=== PATIENT | female | born 1945 | race Caucasian/White ===

== ENCOUNTER 2023-09-20 08:23 | Outpatient (REF) | payer MEDICARE, SELFPAY ==
--- NOTE | ~2023-09-20 | US_ITS ---
EXAMINATION: US NONINVASIVE ASSESSMENT OF THE RIGHT LOWER EXTREMITY WITH ARTERIAL DUPLEX AND ANKLE BRACHIAL INDICES (ABIS) CLINICAL INFORMATION: Atherosclerosis COMPARISON: None available. TECHNIQUE: Duplex Doppler techniques with waveform analysis and measurement of velocities in the common femoral, profunda femoris, superficial femoral, popliteal and tibial arteries were performed. In addition, ankle pulse volume recordings, ankle pressure measurements and ankle brachial indices were obtained of the lower extremity arterial system. The study was performed only at rest. FINDINGS: NONINVASIVE ASSESSMENT OF THE ARTERIES OF BILATERAL LOWER EXTREMITIES WITH ABIs: RIGHT LEG: Ankle-brachial index: 0.83 Ankle PVR: Abnormal, loss of dicrotic notch Right LEG: Ankle-brachial index: 0.3 Left ankle PVR: Abnormal, minimal to no waveform phasicity MARJ Reference: 0.9 - 1.4 = normal - no significant arterial disease 0.7 - 0.89 = mild peripheral arterial disease 0.51 - 0.69 = moderate peripheral arterial disease ? 0.50 = severe peripheral arterial disease RIGHT LOWER EXTREMITY DUPLEX ULTRASOUND: There is a focal plaque within the right common femoral artery. Proximal to the plaque peak systolic velocity is 143.6 cm/s. At the level of the plaque peak systolic velocity is 274.5 cm/s. Diastolic flow reversal is absent. Profunda femoris artery: 195.2 cm/s. Diastolic flow reversal: Absent Superficial femoral artery (proximal): 12.9 - 54.3 cm/s. Diastolic flow reversal: Absent Difficult to identify Doppler signal within the midportion of the superficial femoral artery, may be suggestive of extensive disease. Where the Doppler signal is identified, peak systolic velocity 67.7 cm/s. There is no diastolic flow reversal. Superficial femoral artery (distal): 41.1 cm/s. Diastolic flow reversal: Absent Popliteal artery: 55.3 cm/s Diastolic flow reversal: Absent Posterior tibial artery: 7.6 cm/s Diastolic flow reversal: Absent Dorsalis pedis: 13.9 cm/s Diastolic flow reversal: Absent Anterior tibial artery: 68.1 cm/s Diastolic flow reversal patent US/US arterial duplex LE RT IMPRESSION: The MARJ on the right is 0.3 and there is minimal to no waveform on PVR. There is a large focal plaque within the right common femoral artery which results in at least a moderate stenosis at this level. Beyond the level of the common femoral there are monophasic waveforms throughout the right lower extremity and it is difficult to identify Doppler signal within much of the superficial femoral artery suggesting additional significant SFA disease.
== END 2023-09-20 08:24 | disposition home or self-care (01) ==
LOC: HO.US 08:23
PROVIDERS: PCP Physician Assistant; Visit Provider Surgery
DX: I70.291 Other atherosclerosis of native arteries of extremities, right leg (principal)
CPT/HCPCS: 93923; 93926

== ENCOUNTER 2024-07-25 11:24 | Outpatient (AMB) | payer MEDICARE, SELFPAY ==
--- NOTE | 2024-07-25 11:37 | MHC.OFFVIS ---
Vital Signs 07/25/24 11:46 Height 5 ft 5 in BMI Reason not done Palliative Care Patient BP 165/74 H Blood Pressure Location Lt brachial Position Sitting Pulse 83 Intake Visit Reasons: Rt leg ulcer Intake Note: Patient is seen in office for evaluation and treatment of a right leg ulcer. Pt c/o: original wound was while transferring from chair to bed about a year ago, hasn't healed since, had cellulitis in the past, was on antbx, is been seen by wound clinic, and was seen by vascular in [facility], had imaging done, has blood flow issues, has been using skin subs and mesh and are requesting skin graft [employer] Supervisor Required: No Accompanied by: Family/Other Allergies Sulfa (Sulfonamide Antibiotics) Allergy (Mild, Verified 07/25/24 11:41) Unknown Medication List - Last Reconciled 07/25/24 by Jovan Shaikh MD apixaban (Eliquis) 5 mg PO BID atorvastatin 40 mg PO DAILY citalopram mg PO diltiazem HCl CD 180 mg PO DAILY gabapentin 400 mg PO TID omeprazole 20 mg PO DAILY tocilizumab (Actemra) mg subcut HPI Comments Details: 79-year-old female patient with a history of CVA and vasculitis with dense right hemiparesis and dependent edema being evaluated for nonhealing right anterior moody ulcer for the last year. She has a known SFA stenosis and was evaluated in [place] however no treatment was recommended. She presents today to discuss possible skin graft to this nonhealing wound. [facility] [place]. A skin substitute is being used on the open wound. [facility] Medical History (Updated 07/25/24 @ 12:56 by Jovan Shaikh MD) Chronic venous hypertension with ulcer Peripheral vascular disease Venous stasis Vasculitis Right hemiparesis CVA (cerebral vascular accident) Surgical History (Updated 07/25/24 @ 11:42 by MINAL Lam) Hx of prior ablation treatment Social History (Updated 07/25/24 @ 11:43 by MINAL Lam) Alcohol intake: current Alcohol intake frequency: holidays/special occasions only Patient Tobacco Use Status: Never used Tobacco Review of Systems Const Unobtainable due to mental condition Physical Exam Vital Signs: Last Vital Signs Pulse 83 07/25/24 11:46 BP 165/74 H 07/25/24 11:46 Const General: alert and awake Nutritional Appearance: well nourished Orientation/consciousness: patient oriented x3 Limitations: wheelchair (Right hemiparesis) HEENT Head: Yes normocephalic and Yes atraumatic Ears: hearing grossly normal bilaterally Resp Effort & Inspection: normal respiratory effort GI Inspection: Yes normal to inspection Skin Other: Ulceration as noted in extremity below Neuro General: patient oriented x3 Extrem Other: Right lower extremity with pitting edema 1+. A 1.5 x 2 cm ulceration with applied skin substitute being held by Steri-Strips is noted in the mid moody level as noted below. No erythema is noted. Toes with brisk capillary refill. Upper/lower leg/hip images: 1. 1.5 x 2 cm ulceration with skin substitute applied with Steri-Strips. 1+ edema in the lower extremity Assessment & Plan Assessment & Plan (1) Chronic venous hypertension with ulcer: Code(s): I87.319 - Chronic venous hypertension (idiopathic) with ulcer of unspecified lower extremity; L97.909 - Non-pressure chronic ulcer of unspecified part of unspecified lower leg with unspecified severity Category: Medical Plan 79-year-old female patient presenting with a nonhealing ulcer of the right moody of a proximally 1 years duration. The ulcer is improving however the patient is inquiring regarding applying a skin graft. I reviewed the procedure risks and benefits associated with the skin graft including nonhealing of the skin graft. After discussion of the procedure, risks and alternatives, she consents to the split-thickness skin graft from right thigh to right moody, to be scheduled as a short-stay surgery. Coding Level of Care Code New Pt Level 4 (17205) Diagnoses Chronic venous hypertension with ulcer I87.319; L97.909
[2024-07-25 11:46] VITALS: BP 165/74; PULSE 83
== END 2024-07-25 12:20 | disposition home or self-care (01) ==
PROVIDERS: PCP Physician Assistant; Referring Provider Physician Assistant; Visit Provider Surgery
DX: I87.319 Chronic venous hypertension (idiopathic) with ulcer of unspecified lower extremity (principal); L97.909 Non-pressure chronic ulcer of unspecified part of unspecified lower leg with unspecified severity
CPT/HCPCS: 99204

== ENCOUNTER → 2024-07-25 11:24 | Outpatient (BNVA) | payer MEDICARE, SELFPAY | PROVIDERS: PCP Physician Assistant; Referring Provider Physician Assistant; Visit Provider Surgery | DX: I87.311 Chronic venous hypertension (idiopathic) with ulcer of right lower extremity (principal); L97.919 Non-pressure chronic ulcer of unspecified part of right lower leg with unspecified severity; I69.354 Hemiplegia and hemiparesis following cerebral infarction affecting left non-dominant side | CPT/HCPCS: 99202 ==

== ENCOUNTER → 2024-09-25 11:40 | Outpatient (RCR) | payer MEDICARE, SELFPAY | END | disposition home or self-care (01) | LOC: HO.WCC 07-23 13:56 | PROVIDERS: PCP Physician Assistant; Referring Provider Physician Assistant; Visit Provider Physician Assistant | DX: I87.311 Chronic venous hypertension (idiopathic) with ulcer of right lower extremity (principal); L97.812 Non-pressure chronic ulcer of other part of right lower leg with fat layer exposed; I70.238 Atherosclerosis of native arteries of right leg with ulceration of other part of lower leg; L95.9 Vasculitis limited to the skin, unspecified; I69.351 Hemiplegia and hemiparesis following cerebral infarction affecting right dominant side; Z79.01 Long term (current) use of anticoagulants; Z79.82 Long term (current) use of aspirin; Z79.899 Other long term (current) drug therapy | CPT/HCPCS: 11042; 11043; 15271; 87070; 87077; 87186; 87205; 97597; 99212; 99213; Q4186; Q4187 ==

== ENCOUNTER 2025-06-25 14:46 | Outpatient (RCR) | payer MEDICARE, SELFPAY | END 2025-09-07 16:32 | disposition home or self-care (01) | LOC: HO.WCC 14:46 | PROVIDERS: PCP Physician Assistant; Visit Provider Surgery | DX: I87.311 Chronic venous hypertension (idiopathic) with ulcer of right lower extremity (principal); L97.212 Non-pressure chronic ulcer of right calf with fat layer exposed; I70.232 Atherosclerosis of native arteries of right leg with ulceration of calf; G82.20 Paraplegia, unspecified; I69.351 Hemiplegia and hemiparesis following cerebral infarction affecting right dominant side; I10 Essential (primary) hypertension | CPT/HCPCS: 11042; 11045; 99212 ==